=== PATIENT | male | born 1955 | race Caucasian/White ===

== ENCOUNTER 2020-06-27 08:58 | Outpatient (CLI) | payer OTHER, MEDICARE ==
[2020-06-27] MEDS ORDERED: Iopamidol 370 76% 100 ML VIAL ONE (10:31)
[2020-06-27] MEDS ORDERED: Magnevist 469MG/ML 20 ML VIAL ONE (10:47)
== END 2020-06-27 08:59 | disposition home or self-care (01) ==
LOC: BICMRI 08:58
PROVIDERS: ATTEND Internal Medicine Hematology & Oncology
DX: C20 Malignant neoplasm of rectum (principal); K80.20 Calculus of gallbladder without cholecystitis without obstruction
CPT/HCPCS: 72197; 74160; 82565; A9579; Q9967

== ENCOUNTER 2020-12-07 08:19 | Outpatient (CLI) | payer OTHER, MEDICARE | END 2020-12-07 08:20 | disposition home or self-care (01) | LOC: TBSIIMAG 08:19 | PROVIDERS: ATTEND Internal Medicine Hematology & Oncology | DX: C20 Malignant neoplasm of rectum (principal); K63.89 Other specified diseases of intestine | CPT/HCPCS: 72197; 82565 ==